=== PATIENT | female | born 1970 | race Caucasian/White ===

== ENCOUNTER 2020-05-23 19:45 | Emergency (ER) | payer OTHER ==
[~2020-05-23] VITALS: Ht 182.9 cm; Wt 86.2 kg
[2020-05-23 21:03] LABS: BE(vivo) 10.7 mmol/L (-2 to +3); HCO3 37.5 mmol/L (22.0-26.0); PO2 VENOUS 89.8 mmHg (35.0-45.0)
[2020-05-23] MEDS ORDERED: DOXYCYCLINE 10100 MG PO (21:48)
[2020-05-23 22:25] VITALS: BP 170/94
== END 2020-05-23 23:01 | disposition home or self-care (01) ==
LOC: ER 19:45
PROVIDERS: Emergency Medicine
DX: T41.5X1A Poisoning by therapeutic gases, accidental (unintentional), initial encounter (principal); J44.1 Chronic obstructive pulmonary disease with (acute) exacerbation; F17.210 Nicotine dependence, cigarettes, uncomplicated; Z90.49 Acquired absence of other specified parts of digestive tract; Z88.0 Allergy status to penicillin; E66.9 Obesity, unspecified; Z68.25 Body mass index [BMI] 25.0-25.9, adult; Y92.098 Other place in other non-institutional residence as the place of occurrence of the external cause